=== PATIENT | male | born 1935 | race Caucasian/White ===

== ENCOUNTER 2019-09-15 01:55 | Emergency (ER) | payer MEDICARE, OTHER ==
[~2019-09-15] VITALS: Ht 180.3 cm; Wt 92.3 kg
[2019-09-15] MEDS ORDERED: CARB25TA9 PO (02:26)
[2019-09-15 04:30] LABS: APPEARANCE, URINE CLOUDY (CLEAR); BACTERIA, URINE AUTO NEGATIVE (NEGATIVE); BILIRUBIN, URINE AUTO NEGATIVE (NEGATIVE); BLOOD, URINE BLOOD 3+ (NEGATIVE); COLOR, URINE RED (YELLOW); GLUCOSE, URINE (UA) AUTO 1+ mg/dL (NEGATIVE); KETONE, URINE AUTO NEGATIVE (NEGATIVE); LEUKOCYTE ESTERASE, URINE AUTO TRACE (NEGATIVE); MUCUS, URINE SMALL (NEGATIVE); NITRITE, URINE AUTO NEGATIVE (NEGATIVE); PROTEIN, URINE AUTO 3+ mg/dL (NEGATIVE); RBC, URINE AUTO TNTC /HPF (0-3); SPECIFIC GRAVITY URINE AUTO 1.015 (1.002-1.035); SQUAMOUS EPITHELIAL CELL UR AU 2 /HPF (0-6); UROBILINOGEN, URINE AUTO 0.2 mg/dL (0.0-2.0); WBC, URINE AUTO 35 /HPF (0-3)
--- NOTE | 2019-09-15 04:53 | REPVR ---
PROCEDURE INFORMATION: Exam: CT Head Without Contrast Exam date and time: 09/15/2019 3:01 AM Clinical history: 83 years old, male; Injury or trauma; Fall; Initial encounter; Blunt trauma (contusions or hematomas); Additional info: Tr TECHNIQUE: Imaging protocol: Computed tomography of the head without contrast. Radiation optimization: All CT scans at this facility use at least one of these dose optimization techniques: automated exposure control; mA and/or kV adjustment per patient size (includes targeted exams where dose is matched to clinical indication); or iterative reconstruction. COMPARISON: No relevant prior studies available. FINDINGS: Brain: There is moderate, diffuse parenchymal volume loss. The cortical/white matter interfaces are preserved throughout the brain. There is no evidence of intracranial hemorrhage. Ventricles: The ventricular system demonstrates moderate diffuse compensatory enlargement. Bones/joints: No acute fractures of the skull are identified. Sinuses: The visualized paranasal sinuses are clear. Mastoid air cells: The mastoid air cells are clear. Soft tissues: There is a large hyperdense hematoma in the superficial soft tissues in the left supra-orbital/frontotemporal region. There is infiltration of the superficial soft tissues in the midline in the parietal convexity, without significant associated swelling, possibly scar tissue. Vasculature: Atherosclerotic calcifications are seen in the cerebral arteries at the skull base. IMPRESSION: 1. Large left frontotemporal/supraorbital superficial hematoma. 2. No evidence of acute intracranial injury. Electronically signed by: Ronel Russell On 09/15/2019 04:52:59 AM
--- NOTE | 2019-09-15 05:01 | REPVR ---
PROCEDURE INFORMATION: Exam: CT Cervical Spine Without Contrast Exam date and time: 09/15/2019 3:01 AM Clinical history: 83 years old, male; Injury or trauma; Fall; Initial encounter; Blunt trauma; Additional info: Tr TECHNIQUE: Imaging protocol: Computed tomography images of the cervical spine without contrast. Radiation optimization: All CT scans at this facility use at least one of these dose optimization techniques: automated exposure control; mA and/or kV adjustment per patient size (includes targeted exams where dose is matched to clinical indication); or iterative reconstruction. COMPARISON: No relevant prior studies available. FINDINGS: Vertebrae: There is a mild leftward convex curvature centered in the lower cervical spine. There is no evidence of acute fracture. Discs/Spinal canal/Neural foramina: There is multilevel advanced degenerative disc disease, with osseous fusion across the C6-C7 disc and partial osseous fusion across the C4-C5 disc. There is advanced narrowing of the C5-C6 disc. There is hypertrophy and fusion across the bilateral C4-C5 facet joints and hypertrophic facet arthropathy at multiple levels, most prominent on the left side at C2-C3 and C4-C5 and bilaterally at C7-T1. There is bilateral neural foraminal narrowing at C3-C4. There are mild central canal stenosis and bilateral neural foraminal narrowing at C4-C5 through C6-C7. Prevertebral Space: The prevertebral soft tissues appear normal. Soft tissues: The paraspinous soft tissues appear unremarkable. Lungs: The visualized lung apices are clear. IMPRESSION: 1. No acute fractures or subluxations identified. 2. Advanced multilevel degenerative disc disease and facet arthropathy. Electronically signed by: Ronel Russell On 09/15/2019 05:01:20 AM
[2019-09-15] MEDS ORDERED: PHENAZOPYRIDINE 100 MG TAB PO ONE (05:30)
[2019-09-15 05:43] VITALS: BP 145/81
== END 2019-09-15 06:38 | disposition home or self-care (01) ==
LOC: M ED 01:55
DX: S00.93XA Contusion of unspecified part of head, initial encounter (principal); N99.89 Other postprocedural complications and disorders of genitourinary system; R31.9 Hematuria, unspecified; W19.XXXA Unspecified fall, initial encounter; Y92.099 Unspecified place in other non-institutional residence as the place of occurrence of the external cause; Y93.01 Activity, walking, marching and hiking; Y99.9 Unspecified external cause status; G20 Parkinson's disease; C67.9 Malignant neoplasm of bladder, unspecified; Z95.0 Presence of cardiac pacemaker; M50.30 Other cervical disc degeneration, unspecified cervical region; J30.89 Other allergic rhinitis; Z79.899 Other long term (current) drug therapy

== ENCOUNTER 2020-12-01 06:30 | Inpatient (IN) | payer MEDICARE, OTHER ==
[~2020-12-01] VITALS: Ht 180.3 cm; Wt 81.8 kg
[~2020-12-01 06:30] MED LIST: CARB25TA9 PO
--- NOTE | 2020-12-01 07:52 | REPVR ---
PROCEDURE INFORMATION: Exam: CT Head Without Contrast Exam date and time: 12/01/2020 7:23 AM Age: 84 years old Clinical indication: Injury or trauma; Fall; Blunt trauma (contusions or hematomas) TECHNIQUE: Imaging protocol: Computed tomography of the head without contrast. Radiation optimization: All CT scans at this facility use at least one of these dose optimization techniques: automated exposure control; mA and/or kV adjustment per patient size (includes targeted exams where dose is matched to clinical indication); or iterative reconstruction. COMPARISON: No relevant prior studies available. FINDINGS: Brain: No acute intracerebral abnormality or injury. No acute infarct or intracerebral bleed. Mild patchy periventricular leukomalacia in both cerebral hemispheres, consistent most likely with chronic underlying small vessel / microvascular ischemic disease. [place] Stroke Program Early CT Score (ASPECTS score) = 10. Cerebral ventricles: Ventriculomegaly is additionally present, which could be secondary to central cerebral atrophy versus normal pressure hydrocephalus. I would recommend correlation clinically for signs of abnormal gait, urinary incontinence and dementia, which could be indicative of normal pressure hydrocephalus. Bones/joints: Unremarkable. No acute fracture. Paranasal sinuses: Visualized sinuses are unremarkable. No fluid levels. Mastoid air cells: Visualized mastoid air cells are well aerated. Soft tissues: Unremarkable. IMPRESSION: 1. No acute intracerebral abnormality or injury. No acute infarct or intracerebral bleed. 2. Mild patchy periventricular leukomalacia in both cerebral hemispheres, consistent most likely with chronic underlying small vessel / microvascular ischemic disease. 3. Ventriculomegaly is additionally present, which could be secondary to central cerebral atrophy versus normal pressure hydrocephalus. I would recommend correlation clinically for signs of abnormal gait, urinary incontinence and dementia, which could be indicative of normal pressure hydrocephalus. 4. [place] Stroke Program Early CT Score (ASPECTS score) = 10. Electronically signed by: Huseyin Justice On 12/01/2020 07:53:12 AM
[2020-12-01 07:54] LABS: BASO # 0.1 10^3/uL (0.0-0.2); BASO % 0.8 % (0.0-1.0); EOS # 0.1 10^3/uL (0.0-0.5); EOS % 1.6 % (0.0-3.0); HEMATOCRIT 42.9 % (42.0-52.0); HEMOGLOBIN 14.1 g/dl (13.5-17.5); LYMPH # 0.9 10^3/uL (1.5-5.0); LYMPH % 13.7 % (24.0-44.0); MEAN CORPUSCULAR HEMOGLOBIN 29.7 pg (27.0-33.0); MEAN CORPUSCULAR HGB CONC 32.9 g/dl (32.0-36.5); MEAN CORPUSCULAR VOLUME 90.5 fl (80.0-96.0); MONO # 0.6 10^3/uL (0.0-0.8); MONO % 9.4 % (0.0-5.0); NEUTROPHILS # 4.8 10^3/uL (1.5-8.5); NEUTROPHILS % 74.3 % (36.0-66.0); PLATELET COUNT, AUTOMATED 228 10^3/uL (150-450); RED BLOOD COUNT 4.74 10^6/uL (4.30-6.10); WHITE BLOOD COUNT 6.4 10^3/uL (4.0-10.0)
--- NOTE | 2020-12-01 08:07 | REPVR ---
PROCEDURE INFORMATION: Exam: CT Cervical Spine Without Contrast Exam date and time: 12/01/2020 7:23 AM Age: 84 years old Clinical indication: Injury or trauma; Fall; Blunt trauma TECHNIQUE: Imaging protocol: Computed tomography images of the cervical spine without contrast. Radiation optimization: All CT scans at this facility use at least one of these dose optimization techniques: automated exposure control; mA and/or kV adjustment per patient size (includes targeted exams where dose is matched to clinical indication); or iterative reconstruction. COMPARISON: CT Spine,cervical w/o contrast 09/15/2019 2:53 AM FINDINGS: Bones/joints: No acute fractures seen in the cervical spine. The cervical spine alignment is normal, except for mild, less than 3 mm anterolisthesis of C7 upon T1. Posterior articular joint bony fusion is seen between the C4 and C5 facet joints bilaterally. Discs/Spinal canal/Neural foramina: Chronic degenerative bony neuroforaminal stenosis secondary to uncal joint and posterior facet joint arthropathy, bilaterally at C3/C4, C4/C5, C5/C6 and on the right at C6/C7. No significant spinal canal stenosis. Lungs: Lung apices are normal. Soft tissues: Chronic degenerative anterior longitudinal ligament calcification is seen at multiple levels C2-C7. Diminished joint space is additionally present at C4-C7. IMPRESSION: 1. No acute fractures seen in the cervical spine. 2. The cervical spine alignment is normal, except for mild, less than 3 mm anterolisthesis of C7 upon T1. 3. Chronic degenerative anterior longitudinal ligament calcification is seen at multiple levels C2-C7. Diminished joint space is additionally present at C4-C7. 4. Posterior articular joint bony fusion is seen between the C4 and C5 facet joints bilaterally. 5. Chronic degenerative bony neuroforaminal stenosis secondary to uncal joint and posterior facet joint arthropathy, bilaterally at C3/C4, C4/C5, C5/C6 and on the right at C6/C7. 6. No significant spinal canal stenosis. Electronically signed by: Huseyin Justice On 12/01/2020 08:07:44 AM
--- NOTE | 2020-12-01 08:09 | REP ---
INDICATION: fall COMPARISON: None. TECHNIQUE: Portable AP view of the chest FINDINGS: The mediastinum and cardiac silhouette are within normal limits for portable technique. The lung chawla are clear without acute consolidation, effusion, or pneumothorax. Skeletal structures are intact. IMPRESSION: No acute cardiopulmonary process appreciated. <Electronically signed by Cali Lopez > 12/01/20 0811
--- NOTE | 2020-12-01 08:11 | REP ---
INDICATION: fall COMPARISON: None. TECHNIQUE: Single AP view of the pelvis. FINDINGS: Age-related degenerative changes are appreciated. Left hip replacement noted. No acute fracture or dislocation. IMPRESSION: No acute fracture or dislocation. <Electronically signed by Cali Lopez > 12/01/20 0840
[2020-12-01 08:25] LABS: INR 1.06
[2020-12-01 08:26] LABS: PARTIAL THROMBOPLASTIN TIME 24.9 SECONDS (24.2-38.5)
[2020-12-01] MEDS ORDERED: ENOXAPARIN 40MG/0.4ML SYRINGE (J1650 PER 10MG) SC SCH (09:00)
[2020-12-01 09:31] LABS: ALT/SGPT 30 IU/L (0-32); BLOOD UREA NITROGEN 20 MG/DL (7-18); CALCIUM LEVEL 8.6 MG/DL (8.8-10.2); CARBON DIOXIDE LEVEL 25 mmol/L (20-29); CHLORIDE LEVEL 109 MEQ/L (98-107); CK-MB VALUE MASS 2.5 NG/ML (<3.6); CPK CREATINE PHOSPHOKINASE 42 U/L (39-308); CREATININE FOR GFR 0.79 MG/DL (0.70-1.30); GLOMERULAR FILTRATION RATE > 60.0 (>35); GLUCOSE, FASTING 100 MG/DL (70-100); MB/CK RELATIVE INDEX 5.95 (< OR =4); POTASSIUM SERUM 3.9 MEQ/L (3.5-5.1); SODIUM LEVEL 140 MEQ/L (136-145)
[2020-12-01 09:32] LABS: ALBUMIN 3.4 GM/DL (3.2-5.2); BILIRUBIN,DIRECT 0.2 MG/DL (0.0-0.2); BILIRUBIN,TOTAL 0.8 MG/DL (0.2-1.0); FREE T4 1.14 NG/DL (0.76-1.46); TOTAL PROTEIN 6.2 GM/DL (6.4-8.2); TROPONIN I < 0.02 NG/ML (< 0.10)
--- NOTE | 2020-12-01 09:53 | ECGEPIP ---
[facility] - ED Test Date: 2020-12-01 Pat Name: KENNETH CARTWRIGHT Department: Room: - Gender: Male [employer]ist: gibran : [id number] Requested By: LUIS Conteh Order Number: [id number] Reading MD: Shanthi Silverio Measurements Intervals [place] Rate: 64 P: -76 NV: 171 QRS: -88 QRSD: 206 T: 88 QT: 490 QTc: 508 Interpretive Statements ELECTRONIC ATRIAL PACEMAKER ELECTRONIC VENTRICULAR PACEMAKER ABNORMAL RHYTHM ECG NO PRIOR ECG FOR COMPARISON Electronically Signed on 12-01-2020 9:53:13 EST by Shanthi Silverio
[2020-12-01] MEDS ORDERED: FLOM0.4C39 PO (10:45)
[2020-12-01] MEDS ORDERED: FINA5TAB2 PO (10:45)
[2020-12-01] MEDS ORDERED: TRAZ-186 PO (10:45)
[2020-12-01] MEDS ORDERED: MED REC COMMENT (10:45)
[2020-12-01] MEDS ORDERED: ACID1TAB PO (10:58)
[2020-12-01] MEDS ORDERED: ACETAMINOPHEN TAB 650MG DOSE (2X325MG) PO PRN (11:45)
--- NOTE | 2020-12-01 12:02 | HPEPDOC ---
General Date of Admission 12/01/20 Date of Service: Dec 01, 2020 Chief Complaint The patient is a 84-year-old male admitted with a reason for visit of General Weakness. Source: Patient Exam Limitations: Dementia Timing/Duration: Day(s), Week(s) Severity: Moderate History of Present Illness Patient is 84 years old male with past history of BPH, chronic UTI, dementia presented hospital with altered mental status. According to ER information patient was combative in the morning, confused. Also she reported that he had urinary incontinence and had a few mechanical falls for past few days. In ER patient was found to have no leukocytosis, UA equivocal for UTI. CT head showed Mild patchy periventricular leukomalacia in both cerebral hemispheres, consistent most likely with chronic underlying small vessel/microvascular ischemic disease. Ventriculomegaly is additionally present, which could be secondary to central cerebral atrophy versus normal pressure hydrocephalus. Of note patient is very poor historian. Home Medications Scheduled Finasteride (Finasteride) 5 Mg Tablet, 5 MG PO QHS, (Reported) Lactobacillus Acidophilus (Acidophilus) 1 Each Tablet, 1 TAB PO TID, (Reported) Tamsulosin HCl (Flomax) 0.4 Mg Capsule, 0.8 MG PO QHS, (Reported) Scheduled PRN Trazodone HCl (Trazodone HCl) 50 Mg Tablet, 25 MG PO QHS PRN for SLEEP, (Reported) Allergies Coded Allergies: Cat Dander (Verified Allergy, Mild, 09/15/19) Past Medical History Medical History BPH, dementia, chronic UTI, pacemaker, bladder cancer treated with radiation and chemotherapy in 2010. Social History * Smoker: Denies Alcohol: Denies Drugs: denies A-FIB/CHADSVASC A-FIB History Current/History of A-Fib/PAF?: No Current PO Anticoag Therapy: No Review of Systems Constitutional: Denies: Chills, Fever Eyes: Denies: Pain, Vision change ENT: Denies: Head Aches Skin: Denies: Rash, Lesions Pulmonary: Denies: Dyspnea, Cough Cardiovascular: Denies: Chest Pain Gastrointestinal: Denies: Nausea Genitourinary: Reports: Dysuria, Frequency, Incontinence Endocrine: Denies: Polydipsia Musculoskeletal: Denies: Neck Pain Neurological: Denies: Weakness Psych: Reports: Anxiety, Memory Issues Physical Examination General Exam: Positive: Alert, Moderate Distress Eye Exam: Positive: PERRLA ENT Exam: Positive: Atraumatic Neck Exam: Positive: Supple Chest Exam: Positive: Clear to auscultation Heart Exam: Positive: Rate Normal Telemetry: Positive: No significant arrhythmia Abdomen Exam: Positive: Normal bowel sounds Extremity Exam: Negative: Clubbing Skin Exam: Positive: Nl turgor and temperature Neuro Exam: Positive: Cranial Nerves 3-12 NL Psych Exam: Positive: Oriented x 3 (oriented in place and in time); Negative: Memory Intact Vital Signs Vital Signs Date Time Temp Pulse Resp B/P (MAP) Pulse Ox O2 Delivery O2 Flow Rate FiO2 12/01/20 07:45 90 131/66 (87) 99 12/01/20 07:00 96.5 18 Room Air Laboratory Data Labs 24H Laboratory Tests 2 12/01/20 06:36: Anion Gap 6L, Glomerular Filtration Rate > 60.0, Calcium Level 8.6L, Total Bilirubin 0.8, Direct Bilirubin 0.2, Aspartate Amino Transf (AST/SGOT) 15, Alanine Aminotransferase (ALT/SGPT) 30, Alkaline Phosphatase 88, Total Creatine Kinase 42, Creatine Kinase MB 2.5, Creatine Kinase MB Relative Index 5.95H, Troponin I < 0.02, Total Protein 6.2L, Albumin 3.4, Albumin/Globulin Ratio 1.2, Thyroid Stimulating Hormone (TSH) 1.210, Free Thyroxine 1.14 12/01/20 06:58: Prothrombin Time 14.0, Prothromb Time International Ratio 1.06, Activated Partial Thromboplast Time 24.9L 12/01/20 07:12: Immature Granulocyte % (Auto) 0.2, Neutrophils (%) (Auto) 74.3H, Lymphocytes (%) (Auto) 13.7L, Monocytes (%) (Auto) 9.4H, Eosinophils (%) (Auto) 1.6, Basophils (%) (Auto) 0.8, Neutrophils # (Auto) 4.8, Lymphocytes # (Auto) 0.9L, Monocytes # (Auto) 0.6, Eosinophils # (Auto) 0.1, Basophils # (Auto) 0.1, Nucleated Red Blood Cells % (auto) 0.0 12/01/20 07:45: Urine Color YELLOW, Urine Appearance CLEAR, Urine pH 5.0, Urine Specific [place] 1.016, Urine Protein NEGATIVE, Urine Glucose (UA) NEGATIVE, Urine Ketones NEGATIVE, Urine Blood NEGATIVE, Urine Nitrite NEGATIVE, Urine Bilirubin NEGATIVE, Urine Urobilinogen 0.2, Urine Leukocyte Esterase TRACEH, Urine WBC (Auto) 4H, Urine RBC (Auto) 3, Urine Hyaline Casts (Auto) 0, Urine Bacteria (Auto) NEGATIVE, Urine Squamous Epithelial Cells 0, Urine Mucus (Auto) SMALL, Urine Sperm (Auto) , Coronavirus (COVID-19)(PCR) NEGATIVE CBC/BMP Laboratory Tests 12/01/20 06:36 12/01/20 07:12 Microbiology Microbiology 12/01/20 Urine Culture, Received Pending Assessment/Plan Patient is 84 years old male with past history of BPH, chronic UTI, dementia presented hospital with altered mental status. According to ER information patient was combative in the morning, confused. Also she reported that he had urinary incontinence and had a few mechanical falls for past few days. In ER patient was found to have no leukocytosis, UA equivocal for UTI. CT head showed Mild patchy periventricular leukomalacia in both cerebral hemispheres, consistent most likely with chronic underlying small vessel/microvascular ischemic disease. Ventriculomegaly is additionally present, which could be secondary to central cerebral atrophy versus normal pressure hydrocephalus. Of note patient is very poor historian. 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
[2020-12-01] MEDS ORDERED: D5W/0.45% SODIUM CHLORIDE 1,000 ML IV ONE (13:45)
[2020-12-01 17:42] VITALS: BP 127/69
[2020-12-01] MEDS ORDERED: FINASTERIDE 5 MG TAB PO SCH (21:00)
[2020-12-01] MEDS ORDERED: TAMSULOSIN 0.4 MG CAP PO SCH (21:00)
== END 2020-12-01 17:37 | disposition short-term general hospital (02) | DRG 71 ==
LOC: M ED 06:30 → M ED INP 11:35
PROVIDERS: ADMIT Internal Medicine; ATTEND Internal Medicine
DX: G93.41 Metabolic encephalopathy (principal); G91.2 (Idiopathic) normal pressure hydrocephalus; G31.9 Degenerative disease of nervous system, unspecified; Z79.899 Other long term (current) drug therapy; N40.0 Benign prostatic hyperplasia without lower urinary tract symptoms; F03.90 Unspecified dementia, unspecified severity, without behavioral disturbance, psychotic disturbance, mood disturbance, and anxiety; Z95.0 Presence of cardiac pacemaker; Z85.51 Personal history of malignant neoplasm of bladder